=== PATIENT | female | born 1980 | race Caucasian/White ===

== ENCOUNTER 2023-10-12 14:59 | Outpatient (CLI) | payer OTHER, SELFPAY ==
--- NOTE | 2023-10-12 15:00 | CRLHL7_ITS ---
For Patients: As a result of the Century Cures Act, medical imaging exams and procedure reports are released immediately into your electronic medical record. You may view this report before your referring provider. If you have questions, please contact your health care provider. INDICATION: MENORRHAGIA COMPARISON: none TECHNIQUE: 2D nina scale and color Doppler images were acquired of the pelvis using a transabdominal and transvaginal approach. FINDINGS: Sonographic images demonstrate a normal size and smooth outer contour of the uterus. Uterus measures 8.8 cm in length by 4.4 cm in AP diameter by 4.9 cm in transverse dimension. The myometrium has a normal uniform echotexture. The endometrial lining appears heterogeneous and measures 11 mm in composite thickness. Nabothian cysts are present measuring up to 1.7 cm. The right ovary measures 3.5 x 2.1 x 2.3 cm in size and the left ovary measures 3.2 x 1.4 x 1.8 cm. The ovaries demonstrate normal arterial and venous blood flow on color Doppler analysis. There are no suspicious fluid collections within the cul-de-sac. IMPRESSION: Heterogeneous endometrium measuring up to 1.7 cm. No uterine fibroids. Dictated by Papo Hewitt MD @ 10/14/2023 11:30:10 AM (Electronically Signed)
== END 2023-10-12 15:00 | disposition home or self-care (01) ==
LOC: US 14:59
PROVIDERS: Visit Provider Obstetrics & Gynecology
DX: N92.0 Excessive and frequent menstruation with regular cycle (principal)
CPT/HCPCS: 76830; 76856

== ENCOUNTER 2023-12-21 06:39 | Day surgery (SDC) | payer OTHER, SELFPAY ==
[2023-12-21 07:06] VITALS: BMI 34.2
[2023-12-21 07:11] VITALS: BP 123/75; PULSE 70; RESP 16; TEMP 36.4; O2SAT 97
[2023-12-21 07:11] LABS: Ur HCG Qualitative* Negative (Negative)
[2023-12-21] MEDS: SODIUM CHLORIDE 0.9 % (FLUSH) 10 ML SYRINGE IVF (07:32)
[2023-12-21] MEDS: LACTATED RINGERS 1000 ML 1,000 ML 100 ML IV (07:32)
--- NOTE | 2023-12-21 08:12 | W.ANESCHARGE ---
Anesthesia Charges Start Date/Time Anesthesia Start Date: 12/21/23 Anesthesia Start Time: 08:09 Stop Date/Time Anesthesia Stop Date: 12/21/23 Anesthesia Stop Time: 09:05
[2023-12-21] MEDS: BUPIVACAINE 0.25% 30 ML 12.5 ML INJECTION (08:28)
[2023-12-21] MEDS: LIDOCAINE 1% MDV 12.5 ML INJECTION (08:29)
[2023-12-21] MEDS: SILVER NITRATE APPLICATOR 1 EACH STICK..EA. TOPICAL (08:51)
--- NOTE | 2023-12-21 08:59 | W.PM.GYNPROC ---
Procedure Note Date of procedure: 12/21/23 Pre-op diagnosis: Menorrhagia, right labial skin tag Post-op diagnosis: same Procedure: Hysteroscopy. D&C. Makayla endometrial ablation. Excision of right labial skin tag. Anesthesia: MAC and local Complications: None. Surgeon: Selin Posada MD Estimated blood loss (mL): 5 Pathology: specimen obtained, sent to pathology (Endometrial curettings, right labial skin tag) Condition: stable Disposition: same day Findings: Normal sized, anteverted uterus. Uterine sound length 8 cm. Normal-appearing menstrual endometrium. 1 x 3 mm right labial skin tag on the labia majora. Procedure Description: After obtaining informed consent, the patient was taken to the operating room where she received monitored anesthesia care. She was prepared and draped in the normal sterile fashion, in the dorsal lithotomy position. An open-sided bivalve speculum was introduced into the vagina and the cervix visualized. The anterior lip of the cervix was grasped with a single-tooth tenaculum for traction. A paracervical block was then administered using a total of 20 mL of a 50/50 mixture of 0.25% Marcaine and 1% lidocaine plain. The uterus was gently sounded. Sound length was 8.5 cm. The cervix length was determined to be 3.5 cm using Hegar dilators, yielding a uterine cavity length of 5 cm. The cervix was gently dilated to a #6 Hegar dilator. A hysteroscope was then advanced under direct visualization through the cervix into the uterine cavity. Sterile normal saline was used as distending medium. The uterine cavity was carefully inspected with the findings noted above. The hysteroscope was then removed. The endometrial lining was then sharply curetted. The Makayla device was then set to a cavity length of 5 cm, inserted through the cervical os into the uterine cavity to the level of the fundus, and deployed. The device was sealed against the cervix. The safety checks were then passed x2 and the 2-minute treatment cycle initiated. The device immediately turned off with an error message (#006) suggesting a problem with the array. Instructions were followed to reset the device, which was removed and replaced. Safety checks were again passed times to and the 2 minute treatment cycle initiated. This treatment cycle was successful. Following completion of the treatment cycle, the Makayla device was removed. The hysteroscope was advanced again into the uterine cavity and the uterine cavity inspected. A good ablation was noted from the internal os to fundus and to the cornua bilaterally. Pictures were taken for documentation purposes. The hysteroscope was removed. The tenaculum was removed. There was little bleeding from the tenaculum site, which was controlled with direct pressure sponge stick. A small wheal of the anesthetic mixture was injected beneath the right labial skin tag, which was grasped with the pickups and excised sharply with iris scissors. The bleeding was controlled with topical application of silver nitrate both at the excision site and at the puncture site for the local anesthetic. All instruments were then removed. The patient tolerated the procedure well. Sponge, lap, needle, and instrument counts reported as correct x2. The patient was taken to the recovery room awake in a stable condition.
[2023-12-21 09:04] VITALS: BP 112/85; PULSE 71; RESP 16; TEMP 36.2; O2SAT 100
--- NOTE | 2023-12-21 09:05 | W.ANESCHARGE ---
Anesthesia Charges Start Date/Time Anesthesia Start Date: 12/21/23 Anesthesia Start Time: 08:09 Stop Date/Time Anesthesia Stop Date: 12/21/23 Anesthesia Stop Time: 09:05
[2023-12-21 09:19] VITALS: BP 129/72; PULSE 61; RESP 16; O2SAT 100
== END 2023-12-21 10:00 | disposition home or self-care (01) ==
PROVIDERS: Visit Provider Obstetrics & Gynecology
PROC: 0UF98ZZ Fragmentation in Uterus, Via Natural or Artificial Opening Endoscopic (ICD-10-PCS; CPT 58563; principal; 2023-12-21 08:00)
DX: N92.0 Excessive and frequent menstruation with regular cycle (principal); L91.8 Other hypertrophic disorders of the skin
CPT/HCPCS: 58563; 11200; 00952; 81025; 88305; A9270; J0665; J1100; J1885; J2405; J2704; J3010; J7120